=== PATIENT | female | born 1995 | race African-American/Black ===

== ENCOUNTER 2021-05-15 12:19 | Emergency (ER) | payer MEDICAID ==
[~2021-05-15] VITALS: Ht 172.7 cm; Wt 82.0 kg
[2021-05-15 14:42] VITALS: BP 129/82
== END 2021-05-15 15:12 | disposition home or self-care (01) ==
LOC: ER 12:19
DX: J06.9 Acute upper respiratory infection, unspecified (principal); Z20.822 Contact with and (suspected) exposure to COVID-19; Z91.018 Allergy to other foods
CPT/HCPCS: 71045; 87426; 87804; 99284